=== PATIENT | female | born 1975 | race Caucasian/White ===

== ENCOUNTER 2019-09-26 21:20 | Emergency (ER) | payer MEDICARE, MEDICAID ==
[~2019-09-26] VITALS: Ht 157.5 cm; Wt 55.4 kg
[2019-09-26 22:30] LABS: BASOPHILS % (AUTO) 0.4 % (0-1); EOSINOPHILS # (AUTO) 0.4 X10'3 (0-0.9); HEMATOCRIT 37.7 % (35.0-45.0); HEMOGLOBIN 12.5 g/dl (12.0-16.0); LYMPHOCYTES # (AUTO) 1.6 X10'3 (1.1-4.8); LYMPHOCYTES % (AUTO) 16.7 % (21-51); MEAN CORPUSCULAR HEMOGLOBIN 31.7 PG (27.0-31.0); MEAN CORPUSCULAR HGB CONC 33.3 g/dL (33.0-36.5); MEAN CORPUSCULAR VOLUME 95.3 FL (78-98); MEAN PLATELET VOLUME 8.2 FL (7.4-10.4); MONOCYTES # (AUTO) 0.6 X10'3 (0-0.9); MONOCYTES % (AUTO) 6.7 % (2-12); NEUTROPHILS # (AUTO) 6.8 X10'3 (1.8-7.7); NEUTROPHILS % (AUTO) 72.2 % (42-75); PLATELET COUNT 256 X10'3 (140-440); RED BLOOD COUNT 3.96 X10'6 (4.20-5.60); RED CELL DISTRIBUTION WIDTH 12.4 % (11.5-14.5); WHITE BLOOD COUNT 9.4 X10'3 (4.5-11.0)
[2019-09-26 22:36] LABS: PARTIAL THROMBOPLASTIN TIME 32 SECONDS (22-32)
[2019-09-26 22:38] LABS: ALANINE AMINOTRANSFERASE 38 U/L (12-78); ALBUMIN 2.9 G/DL (3.4-5.0); ALBUMIN/GLOBULIN RATIO 0.7 (1.1-1.5); ALKALINE PHOSPHATASE 149 IU/L (46-116); ANION GAP 9 (8-16); ASPARTATE AMINO TRANSFERASE 54 U/L (10-37); BILIRUBIN,TOTAL 0.3 MG/DL (0.1-1.0); BLOOD UREA NITROGEN 16 MG/DL (7-18); BUN/CREATININE RATIO 23.2 (6.6-38.0); CALCIUM 8.4 MG/DL (8.5-10.1); CHLORIDE 106 MMOL/L (99-107); CREATININE 0.69 MG/DL (0.40-0.90); GLUCOSE 75 MG/DL (70-104); POTASSIUM 4.2 MMOL/L (3.5-5.1); SODIUM 143 MMOL/L (135-145); TOTAL PROTEIN 7.3 G/DL (6.4-8.2); eGFR > 90 ML/MIN
[2019-09-26] MEDS ORDERED: iohexol 300mg/ml 100ml inj. ONE (23:28)
[2019-09-27] MEDS ORDERED: AZIT-63 PO (00:44)
[2019-09-27] MEDS ORDERED: azithromycin 250mg tablet PO ONE (00:45)
[2019-09-27 01:16] VITALS: BP 133/75
== END 2019-09-27 01:17 | disposition home or self-care (01) ==
LOC: ER 21:22
DX: J18.9 Pneumonia, unspecified organism (principal); I50.9 Heart failure, unspecified; R06.02 Shortness of breath; R05 Cough; F15.10 Other stimulant abuse, uncomplicated; Z87.891 Personal history of nicotine dependence; Z88.0 Allergy status to penicillin; Z79.2 Long term (current) use of antibiotics
CPT/HCPCS: 36415; 71045; 71260; 80053; 83880; 85025; 85610; 85730; 87635; 93005; 99285; Q9967